=== PATIENT | female | born 1960 | race African-American/Black ===

== ENCOUNTER 2020-12-16 15:51 | Emergency (ER) | payer SELFPAY ==
[~2020-12-16] VITALS: Ht 167.6 cm; Wt 93.0 kg
[2020-12-16 16:30] VITALS: BP 206/83
[2020-12-16] MEDS ORDERED: CYCL10TA2 PO (17:12)
[2020-12-16] MEDS ORDERED: DICL50TA2 PO (17:12)
[2020-12-16] MEDS ORDERED: GABA-585 PO (17:12)
--- NOTE | 2020-12-16 17:13 | PHYS DOC ---
Past Medical History Past Medical History: Diabetes-Type II, High Cholesterol, Hypertension Past Surgical History: No Surgical History Smoking Status: Current Every Day Smoker Alcohol Use: Occasionally Drug Use: None General Adult EDM: Chief Complaint: BACK PAIN - NO INJURY HPI: HPI: Patient is a 60 year old female with a history of diabetes, hypertension, high cholesterol, presenting to the ED today complaining of mild intermittent left lower back pain radiating to the left lower extremity, symptoms began a week ago. Patient denies any injuries, denies any loss of bowel/bladder function, she states she was seen by the PCP last week and was started on prednisone as well as her blood pressure medicine was adjusted. She states the prednisone is not helping with her pain Review of Systems: Review of Systems: Constitutional: Denies fever or chills. [] GI: Denies abdominal pain, nausea, vomiting, bloody stools or diarrhea. [] : Denies dysuria. [] Musculoskeletal: Reports left low back pain radiating to the left lower extremity Integument: Denies rash. [] Neurologic: Denies headache, focal weakness or sensory changes. [] Psychiatric: Denies depression or anxiety. [] Heart Score: C/O Chest Pain: N/A Risk Factors: Risk Factors: DM, Current or recent (<one month) smoker, HTN, HLP, family history of CAD, obesity. Risk Scores: Score 0 - 3: 2.5% MACE over next 6 weeks - Discharge Home Score 4 - 6: 20.3% MACE over next 6 weeks - Admit for Clinical Observation Score 7 - 10: 72.7% MACE over next 6 weeks - Early Invasive Strategies Allergies: Allergies: Allergies Coded Allergies Type Severity Reaction Last Updated Verified No Known Drug Allergies 12/16/20 No Physical Exam: PE: Constitutional: Well developed, well nourished, no acute distress, non-toxic appearance. [] Skin: Warm, dry, no erythema, no rash. [] Back: No tenderness, no CVA tenderness. [] Extremities: No tenderness, no cyanosis, no clubbing, ROM intact, no edema. [] Neurologic: Alert and oriented X 3, normal motor function, normal sensory function, no focal deficits noted. [] Psychologic: Affect normal, judgement normal, mood normal. [] Current Patient Data: Vital Signs: Vital Signs Date Time Temp Pulse Resp B/P (MAP) Pulse Ox O2 Delivery O2 Flow Rate FiO2 12/16/20 16:30 98.8 50 12 206/83 (124) 96 Room Air 98.8 EKG: EKG: [] Radiology/Procedures: Radiology/Procedures: [] Course & Med Decision Making: Course & Med Decision Making Pertinent Labs and Imaging studies reviewed. (See chart for details) This is a 60-year-old female patient presenting to the ED today with pain consistent of sciatica. Was seen by the PCP last week and started on prednisone which she states is not helping. No known injury, no cauda equina syndrome symptoms. Discharge to home with cyclobenzaprine, gabapentin and diclofenac Dragon Disclaimer: Dragon Disclaimer: This electronic medical record was generated, in whole or in part, using a voice recognition dictation system. Departure Departure Impression: Primary Impression: Back pain Qualified Codes: M54.42 - Lumbago with sciatica, left side Additional Impression: Sciatica of left side Disposition: HOME / SELF CARE / HOMELESS Condition: STABLE Referrals: ALESSIA DOUGLAS APRN (PCP) Follow-up with your doctor next week Patient Instructions: Back Pain, Adult, Sciatica, [id number] Additional Instructions: You were evaluated in the emergency room for sciatica. Use the prescribed medications as ordered. Please follow-up with your primary care doctor in the next 1 to 2 weeks. Scripts Diclofenac Potassium (DICLOFENAC POTASSIUM) 50 Mg Tablet 1 TAB PO BID, #12 TAB 1 Refill Prov: MARK JUAREZ APRN 12/16/20 Cyclobenzaprine Hcl (CYCLOBENZAPRINE HCL) 10 Mg Tablet 1 TAB PO TID, #30 TAB Prov: MARK JUAREZ APRN 12/16/20 Gabapentin (GABAPENTIN ) 100 Mg Capsule 100 MG PO TID for NEUROGENIC PAIN, #21 CAP Prov: MARK JUAREZ APRN 12/16/20 MARK JUAREZ APRN December 16, 2020 17:12
== END 2020-12-16 17:40 | disposition home or self-care (01) ==
LOC: ER 15:51
DX: M54.42 Lumbago with sciatica, left side (principal); E11.9 Type 2 diabetes mellitus without complications; E78.00 Pure hypercholesterolemia, unspecified; I10 Essential (primary) hypertension; F17.200 Nicotine dependence, unspecified, uncomplicated
CPT/HCPCS: 99283

== ENCOUNTER 2020-12-19 15:00 | Emergency (ER) | payer SELFPAY ==
[~2020-12-19] VITALS: Ht 167.6 cm; Wt 93.1 kg
[~2020-12-19 15:00] MED LIST: CYCL10TA2 PO; DICL50TA2 PO; GABA-585 PO
[2020-12-19] MEDS ORDERED: diazePAM 5 MG TABLET PO ONE (16:30)
[2020-12-19] MEDS ORDERED: HYDROcodone/APAP 5/325MG 1 TAB TABLET PO ONE (16:30)
--- NOTE | 2020-12-19 17:01 | RAD ---
Exam: CT the lumbar spine without contrast INDICATION: Lower lumbar back pain with numbness to the left lower extremity. TECHNIQUE: Sequential axial images through the lumbar spine obtained without IV contrast. Sagittal an d coronal reformatted images were reconstructed from the axial data and reviewed. Exposure: One or more of the following in the visualized dose reduction techniques were utilized for this examination: 1. Automated exposure control 2. Adjustment of the MA and/or KV according to patient size 3. Use of iterative of reconstructive technique Comparisons: None FINDINGS: Vertebral body heights are well-maintained. Grade 1 anterolisthesis of L4 on L5. Fracture through the lumbar spine is not identified. Mild degenerative disc disease at L5 or L5 and L5-S1 with associated mild broad-based disc bulges cau sing moderate to severe spinal canal stenosis at L4-L5. Moderate bilateral neural foraminal stenosis at L4-L5 and L5-S1. Visualized paraspinal soft tissues are unremarkable. 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 Electronically signed by: Lisa Goddard MD (12/19/2020 4:59 PM) [place]
[2020-12-19] MEDS ORDERED: LIDO1ADH TP (17:55)
[2020-12-19] MEDS ORDERED: HYDR-2761 PO (17:55)
[2020-12-19] MEDS ORDERED: DIAZ5TAB PO (17:55)
--- NOTE | 2020-12-19 17:55 | PHYS DOC ---
Past Medical History Past Medical History: Diabetes-Type II, High Cholesterol, Hypertension, Other Additional Past Medical Histor: SCIATICA Past Surgical History: No Surgical History Smoking Status: Current Every Day Smoker Additional Information: 1 PPD Alcohol Use: Rarely Drug Use: None General Adult EDM: Chief Complaint: LOWEREXTREMITY INJURY HPI: HPI: Patient is a 60 year old diabetes type 2, hypertension, high cholesterol, who presents to the ED today complaining of moderate sharp constant left low back pain radiating to the left lower extremity, symptoms began 3 weeks ago. Patient denies any trauma. Denies any loss of bowel/bladder function. States occasionally she has a funny sensation of numbness that goes to her toes. She states she saw her PCP a week and a half ago who started her on prednisone, she states it did not help. She came to the ED last week and she was given diclofen ac gabapentin and cyclobenzaprine which she states is not helping. She states pain is worse on weightbearing. Review of Systems: Review of Systems: Constitutional: Denies fever or chills. [] GI: Denies abdominal pain, nausea, vomiting, bloody stools or diarrhea. [] : Denies dysuria. [] Musculoskeletal: Reports left low back pain radiating to the left lower extremity Integument: Denies rash. [] Neurologic: Denies headache, focal weakness or sensory changes. [] Psychiatric: Denies depression or anxiety. [] Heart Score: C/O Chest Pain: N/A Risk Factors: Risk Factors: DM, Current or recent (<one month) smoker, HTN, HLP, family history of CAD, obesity. Risk Scores: Score 0 - 3: 2.5% MACE over next 6 weeks - Discharge Home Score 4 - 6: 20.3% MACE over next 6 weeks - Admit for Clinical Observation Score 7 - 10: 72.7% MACE over next 6 weeks - Early Invasive Strategies Current Medications: Current Medications Medications (Trade) Dose Ordered Sig/Tej Start Time Stop Time Status Last Admin Dose Admin Acetaminophen/ Hydrocodone Bitart (Lortab 5/325) 2 tab 1X ONCE 12/19/20 16:30 12/19/20 16:31 DC 12/19/20 16:54 2 TAB Diazepam (Valium) 5 mg 1X ONCE 12/19/20 16:30 12/19/20 16:31 DC 12/19/20 16:55 5 MG Allergies: Allergies: Allergies Coded Allergies Type Severity Reaction Last Updated Verified No Known Drug Allergies 12/16/20 No Physical Exam: PE: Constitutional: Well developed, well nourished, no acute distress, non-toxic appearance. [] Abdomen: Bowel sounds normal, soft, no tenderness, no masses, no pulsatile masses. [] Skin: Warm, dry, no erythema, no rash. [] Back: Tenderness to the left lower lumbar spine worse on the left SI joint, with slight midline tenderness, no CVA tenderness. Positive straight leg raise at 10 degrees Extremities: No tenderness, no cyanosis, no clubbing, ROM intact, no edema. [] Neurologic: Alert and oriented X 3, normal motor function, normal sensory function, no focal deficits noted. [] Psychologic: Affect normal, judgement normal, mood normal. [] Current Patient Data: Vital Signs: Vital Signs Date Time Temp Pulse Resp B/P (MAP) Pulse Ox O2 Delivery O2 Flow Rate FiO2 12/19/20 15:19 98.1 56 16 198/95 (129) 99 Room Air 98.1 EKG: EKG: [] Radiology/Procedures: Radiology/Procedures: []ROCEDURE: CT LUMBAR SPINE WO CONTRAST Exam: CT the lumbar spine without contrast INDICATION: Lower lumbar back pain with numbness to the left lower extremity. TECHNIQUE: Sequential axial images through the lumbar spine obtained without IV contrast. Sagittal and coronal reformatted images were reconstructed from the axial data and reviewed. Exposure: One or more of the following in the visualized dose reduction techniques were utilized for this examination: 1. Automated exposure control 2. Adjustment of the MA and/or KV according to patient size 3. Use of iterative of reconstructive technique Comparisons: None FINDINGS: Vertebral body heights are well-maintained. Grade 1 anterolisthesis of L4 on L5. Fracture through the lumbar spine is not identified. Mild degenerative disc disease at L5 or L5 and L5-S1 with associated mild broad- based disc bulges causing moderate to severe spinal canal stenosis at L4-L5. Moderate bilateral neural foraminal stenosis at L4-L5 and L5-S1. Visualized paraspinal soft tissues are unremarkable. 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 Electronically signed by: Lisa Conklin MD (12/19/2020 4:59 PM) [facility] DICTATED and SIGNED BY: LISA CONKLIN MD DATE: 12/19/20 [id number] 0 Course & Med Decision Making: Course & Med Decision Making Pertinent Labs and Imaging studies reviewed. (See chart for details) This is a 60-year-old female patient presented to the ED today with low back pain for 3 weeks, no known injury, has been seen by the PCP and was in the ED a week ago with no improvement. CT of the lumbar spine noted for DJD with bulging disks. Patient has no cauda equina syndrome symptoms. Patient was given prescription for Valium and hydrocodone. She already has diclofenac. Lidoderm patches also provided. Follow-up with neurosurgery and PCP next week Enrique Disclaimer: Dragon Disclaimer: This electronic medical record was generated, in whole or in part, using a voice recognition dictation system. Departure Departure Impression: Primary Impression: Back pain Qualified Codes: M54.5 - Low back pain Additional Impression: Sciatica of left side Disposition: HOME / SELF CARE / HOMELESS Condition: STABLE Referrals: ALESSIA DOUGLAS APRN (PCP) SEBASTIEN MINER MD follow up next week BERENICE SY MD follow up next week Patient Instructions: Back Pain, Adult, [id number] Additional Instructions: You were evaluated in the emergency room for back pain with sciatica. You were noted to have arthritis and bulging disks to your low back. Please follow-up with the provided neurosurgeon and pain clinic doctor next week, contact the office and set up appointments. Take the prescribed medications as ordered including the other medicines you have Scripts Lidocaine/Menthol (LIDOPATCH) 1 Each Adh..patch 1 ANTONIO TP DAILY, #15 EACH 0 Refills Prov: MARK JUAREZ YASEMIN 12/19/20 Hydrocodone Bit/Acetaminophen (HYDROCODONE-APAP 5-325 ) 1 Tab Tablet 1 TAB PO PRN Q6HRS PRN for PAIN, #30 TAB 0 Refills Prov: MARK JUAREZ Zehra HAZEL 12/19/20 Diazepam (VALIUM) 5 Mg Tablet 5 MG PO TID PRN for MUSCLE SPASMS, #30 TAB Prov: LARRYMARK Zehra CLARKEN 12/19/20 LARRYMARK Zehra HAZEL December 19, 2020 17:55
[2020-12-19 18:28] VITALS: BP 223/109
== END 2020-12-19 18:28 | disposition home or self-care (01) ==
LOC: ER 15:00
DX: M54.42 Lumbago with sciatica, left side (principal); E11.9 Type 2 diabetes mellitus without complications; E78.00 Pure hypercholesterolemia, unspecified; I10 Essential (primary) hypertension; F17.200 Nicotine dependence, unspecified, uncomplicated
CPT/HCPCS: 72131; 99284-25

== ENCOUNTER 2021-05-16 16:11 | Emergency (ER) | payer SELFPAY ==
[~2021-05-16] VITALS: Ht 165.1 cm; Wt 103.0 kg
[~2021-05-16 16:11] MED LIST changes: +DIAZ5TAB PO; +HYDR-2761 PO; +LIDO1ADH TP
[2021-05-16 17:08] LABS: BASO # 0.1 x10^3/uL (0.0-0.2); BASO % 1 % (0-3); EOS # 0.1 x10^3/uL (0.0-0.7); EOS % 2 % (0-3); HEMATOCRIT 34.1 % (36.0-47.0); HEMOGLOBIN 11.4 g/dL (12.0-15.5); LYMPH # 1.5 x10^3/uL (1.0-4.8); LYMPH % 30 % (24-48); MEAN CORPUSCULAR HEMOGLOBIN 30 pg (25-35); MEAN CORPUSCULAR HGB CONC 33 g/dL (31-37); MEAN CORPUSCULAR VOLUME 89 fL (79-100); MONO # 0.6 x10^3/uL (0.0-1.1); MONO % 12 % (0-9); NEUT # 2.9 x10^3/uL (1.8-7.7); NEUT % 55 % (31-73); PLATELET COUNT 197 x10^3/uL (140-400); RED BLOOD COUNT 3.84 x10^6/uL (3.50-5.40); RED CELL DISTRIBUTION WIDTH 15.9 % (11.5-14.5); WHITE BLOOD COUNT 5.2 x10^3/uL (4.0-11.0)
[2021-05-16 17:28] LABS: CALCIUM 9.5 mg/dL (8.5-10.1); GFR 68.4; POTASSIUM 3.3 mmol/L (3.5-5.1)
--- NOTE | 2021-05-16 17:29 | RAD ---
XR CHEST 1V History: Reason: Chest pain / Spl. Instructions: / History: Comparison: July 11, 2015 Findings: No consolidation or pleural effusion. Normal heart size. No pneumothorax. Impression: 1. No acute cardiopulmonary process. Electronically signed by: Prieto Chino DO (05/16/2021 5:27 PM) [facility]
--- NOTE | 2021-05-16 17:35 | EKG ---
[facility] [address] [place] [address] Test Date: 2021-05-16 Test Time: 16:21:32 Pat Name: JACOB MCNEAL Department: Room: Gender: F Lpn: : 1960 Requested By: DANIEL ORDOÑEZ Order Number: [id number] Reading MD: Cecilio Oseguera Measurements Intervals [place] Rate: 74 P: 65 [place]: 158 QRS: -39 QRSD: 94 T: 61 QT: 394 QTc: 438 Interpretive Statements SINUS RHYTHM ABNORMAL LEFT AXIS DEVIATION LEFT ANTERIOR FASCICULAR BLOCK CONSIDER LEFT VENTRICULAR HYPERTROPHY T ABNORMALITY IN HIGH LATERAL LEADS ABNORMAL ECG Electronically Signed On 05-22-2021 13:03:14 CDT by Cecilio Oseguera
[2021-05-16 17:36] LABS: ALBUMIN 3.4 g/dL (3.4-5.0); ALBUMIN/GLOBULIN RATIO 0.7 (1.0-1.7); TOTAL BILIRUBIN 0.2 mg/dL (0.2-1.0)
[2021-05-16 18:46] LABS: PLT ESTIMATE ADEQUATE (ADEQUATE)
[2021-05-16 19:00] VITALS: BP 188/110
[2021-05-16] MEDS ORDERED: KETOROLAC 30 MG/ML VIAL. IVP ONE (19:00)
--- NOTE | 2021-05-16 19:14 | PHYS DOC ---
Past Medical History Past Medical History: Diabetes-Type II, High Cholesterol, Hypertension, Other Additional Past Medical Histor: SCIATICA Past Surgical History: No Surgical History Smoking Status: Former Smoker Alcohol Use: None Drug Use: None General Adult EDM: Chief Complaint: CHEST PAIN HPI: HPI: Patient is a 60-year-old female presents emergency department complaining of sternal chest pain that increases with deep breathing and deep expiration for the past 2 weeks. Patient reports she has been seeing her doctors at [facility] and they are not doing nothing for her. Patient reports intubated does have a history of hypertension and her blood pressure is high however is recently starting medications and she is aware of her diastolic blood pressures being over 100. Patient reports her doctors are trying different medications to help with this. Patient denies shortness of breath, recent fever or chills, nausea, vomiting, diarrhea, denies diaphoresis, patient denies other complaints or concerns. Review of Systems: Review of Systems: 14 body systems of review of systems have been reviewed. See HPI for pertinent positives and negative responses, otherwise all other systems are negative, nonpertinent or noncontributory. Constitutional: Negative except as outlined in HPI above. Skin: Negative except as outlined in HPI above. Eyes: Negative except as outlined in HPI above. HENT: Negative except as outlined in HPI above. Respiratory: Negative except as outlined in HPI above. Cardiovascular: Negative except as outlined in HPI above. GI: Negative except as outlined in HPI above. : Negative except as outlined in HPI above. Musculoskeletal: Negative except as outlined in HPI above. Integument: Negative except as outlined in HPI above. Neurologic: Negative except as outlined in HPI above. Endocrine: Negative except as outlined in HPI above. Lymphatic: Negative except as outlined in HPI above. Psychiatric: Negative except as outlined in HPI above. Heart Score: C/O Chest Pain: Yes HEART Score for Chest Pain: HEART Score for Chest Pain Response (Comments) Value History Slighlty/Non-Suspicious 0 ECG Normal 0 Age >45 - < 65 1 Risk Factors 1 or 2 Risk Factors 1 Troponin < Normal Limit 0 Total 2 Risk Factors: Risk Factors: DM, Current or recent (<one month) smoker, HTN, HLP, family history of CAD, obesity. Risk Scores: Score 0 - 3: 2.5% MACE over next 6 weeks - Discharge Home Score 4 - 6: 20.3% MACE over next 6 weeks - Admit for Clinical Observation Score 7 - 10: 72.7% MACE over next 6 weeks - Early Invasive Strategies Allergies: Allergies: Allergies Coded Allergies Type Severity Reaction Last Updated Verified No Known Drug Allergies 05/16/21 No Physical Exam: PE: Constitutional: Well developed, well nourished, no acute distress, non-toxic appearance. 60-year-old female in no apparent distress. HENT: Normocephalic, atraumatic. Eyes: Conjunctiva normal, no discharge. Neck: Normal range of motion, no stridor. Cardiovascular: No cyanosis appreciated, distal cap refill less than 2 seconds. Regular rate and rhythm, heart sounds S1-S2 auscultation. Lungs & Thorax: Patient is in no respiratory distress, no audible adventitious lung sounds appreciated. Pain to palpation anterior thorax along mid sternal area. No bruising, no crepitus appreciated, no subcu air. Equal rise and fall of chest Abdomen: Nontender, no abnormalities noted. Skin: Warm, dry, no erythema, no rash. Back: No tenderness, no deformities. Extremities: No tenderness, no cyanosis, no clubbing, ROM intact, no edema. Neurologic: Alert and oriented X 3, normal motor function, normal sensory function, no focal deficits noted. Psychologic: Affect normal, judgement normal, mood normal. Current Patient Data: Labs: Laboratory Tests Test 05/16/21 16:34 White Blood Count 5.2 x10^3/uL (4.0-11.0) Red Blood Count 3.84 x10^6/uL (3.50-5.40) Hemoglobin 11.4 g/dL (12.0-15.5) L Hematocrit 34.1 % (36.0-47.0) L Mean Corpuscular Volume 89 fL (79-100) Mean Corpuscular Hemoglobin 30 pg (25-35) Mean Corpuscular Hemoglobin Concent 33 g/dL (31-37) Red Cell Distribution Width 15.9 % (11.5-14.5) H Platelet Count 197 x10^3/uL (140-400) Neutrophils (%) (Auto) 55 % (31-73) Lymphocytes (%) (Auto) 30 % (24-48) Monocytes (%) (Auto) 12 % (0-9) H Eosinophils (%) (Auto) 2 % (0-3) Basophils (%) (Auto) 1 % (0-3) Neutrophils # (Auto) 2.9 x10^3/uL (1.8-7.7) Lymphocytes # (Auto) 1.5 x10^3/uL (1.0-4.8) Monocytes # (Auto) 0.6 x10^3/uL (0.0-1.1) Eosinophils # (Auto) 0.1 x10^3/uL (0.0-0.7) Basophils # (Auto) 0.1 x10^3/uL (0.0-0.2) Platelet Estimate Adequate (ADEQUATE) Large Platelets Present Sodium Level 140 mmol/L (136-145) Potassium Level 3.3 mmol/L (3.5-5.1) L Chloride Level 103 mmol/L (98-107) Carbon Dioxide Level 28 mmol/L (21-32) Anion Gap 9 (6-14) Blood Urea Nitrogen 9 mg/dL (7-20) Creatinine 1.0 mg/dL (0.6-1.0) Estimated GFR (Cockcroft-Gault) 68.4 BUN/Creatinine Ratio 9 (6-20) Glucose Level 113 mg/dL (70-99) H Calcium Level 9.5 mg/dL (8.5-10.1) Total Bilirubin 0.2 mg/dL (0.2-1.0) Aspartate Amino Transferase (AST) 23 U/L (15-37) Alanine Aminotransferase (ALT) 31 U/L (14-59) Alkaline Phosphatase 76 U/L (46-116) Creatine Kinase 210 U/L (26-192) H Creatine Kinase MB (Mass) 1.6 ng/mL (0.0-3.6) Creatine Kinase MB Relative Index 0.8 % (0-4) Troponin I Quantitative < 0.017 ng/mL (0.000-0.055) ME-Xge-U-Type Natriuretic Peptide 58 pg/mL (0-124) Total Protein 8.0 g/dL (6.4-8.2) Albumin 3.4 g/dL (3.4-5.0) Albumin/Globulin Ratio 0.7 (1.0-1.7) L Laboratory Tests 05/16/21 16:34 Laboratory Tests 05/16/21 16:34 Vital Signs: Vital Signs Date Time Temp Pulse Resp B/P (MAP) Pulse Ox O2 Delivery O2 Flow Rate FiO2 05/16/21 18:14 80 15 183/109 (133) 97 Room Air 05/16/21 16:26 98.2 98.2 EKG: EKG: EKG performed at 1624 by ED nursing staff shows a normal sinus rhythm without other ectopy, heart rate 74 bpm, PA interval 0.158, QTc interval 0.461, no acute STEMI, no ACS, no acute ischemia appreciated, EKG interpreted by ED attending physician Dr. Chawla. Radiology/Procedures: Radiology/Procedures: PATIENT: JACOB MCNEAL ACCOUNT: [id number] : 1960 LOCATION: ER AGE: 60 SEX: F EXAM STATUS: PRE ER ORD. PHYSICIAN: DANIEL ORDOÑEZ APRN REASON: Chest pain PROCEDURE: CHEST AP ONLY XR CHEST 1V History: Reason: Chest pain / Spl. Instructions: / History: Comparison: July 11, 2015 Findings: No consolidation or pleural effusion. Normal heart size. No pneumothorax. Impression: 1. No acute cardiopulmonary process. Electronically signed by: Prieto Chino DO (05/16/2021 5:27 PM) [facility] Course & Med Decision Making: Course & Med Decision Making Pertinent Labs and Imaging studies reviewed. (See chart for details) 60 year-old female, vital signs reviewed, presents emergency department concerning sternal chest pain. Physical examination consistent with musculoske letal chest wall pain, related to patient's age and history will order cardiopulmonary work-up. Patient's EKG, cardiac enzymes, chest x-ray nonconcerning for acute cardiopulmonary process, all other labs within normal limits or equivocal. Discussed findings with patient, patient is relieved to know if she does not have pneumonia or having a heart attack. Discussed strict follow-up with primary care regarding hypertension. Patient did have several episodes of hypertensive blood pressures, patient has good follow-up and reports taking her blood pressure medicines at home. Will discharge patient to home with strict follow-up with primary care. This is unlikely pulmonary emboli, patient cu rrently rates her pain at a 1 out of 10, the patient is not hypoxic, the patient is in no respiratory distress. Discussed with the patient all findings and diagnostic testing as well as the need to follow-up with their primary care provider for further evaluation and treatment or return to the ED if any new or worsening symptoms. Strict return precautions were also discussed at length, the patient voiced understanding and agreement with the discharge planning. The patient was nontoxic in appearance, in no apparent distress, and hemodynamically stable at the time of disposition. Dragon Disclaimer: Dragon Disclaimer: This electronic medical record was generated, in whole or in part, using a voice recognition dictation system. Departure Departure Impression: Primary Impression: Chest wall pain Disposition: HOME / SELF CARE / HOMELESS Condition: GOOD Referrals: ALESSIA DOUGLAS APRN (PCP) Patient Instructions: Chest Pain (Nonspecific) Additional Instructions: You were seen today in the emergency department for chest pain. An extensive cardiopulmonary work-up was done today. Your EKG and chest x-ray did not show any concerning findings. Your lab work did not show any signs of infectious process, your heart enzymes were all within normal limits. We talked at length about your elevated blood pressures in the emergency department. You had disclosed you are working closely with your primary care physician to manage her blood pressures. Please keep all your future appointments with your primary care physician to manage blood pressure. You may use [id number] Tylenol and or Motrin for ongoing chest wall pain. Thank you for visiting our Emergency Department. It was a pleasure taking care of you today in the emergency department and we appreciate you trusting us with your care. If any additional problems come up don't hesitate to return to visit us. Please follow up with your primary care provider so they can plan additional care if needed and know about the problem that you had. If symptoms worsen come back to the Emergency Department. Any concerning symptoms that start such as chest pain, shortness of air, weakness or numbness on one side of the body, running high fevers or any other concerning symptoms return to the ER. EMERGENCY DEPARTMENT GENERAL DISCHARGE INSTRUCTIONS Thank you for coming to Emergency Department (ED) today and trusting us with you care. We trust that you had a positive experience in our Emergency Department. If you wish to speak to the department management, you may call the Director at [phone]. YOUR FOLLOW UP INSTRUCTIONS ARE FOLLOWS: 1. Do you have a private Doctor? If you do not have a private doctor, please ask for a resource list of physicians or clinics that may be able to assist you with follow up care. 2. The Emergency Physicain has interpreted your x-rays. The X-Ray specialist will also review them. If there is a change in the findings, you will be notified in 48 hours when at all possible. 3. A lab test or culture has been done, your results will be reviewed and you will be notified if you need a change in treatment. ADDITIONAL INSTRUCTIONS AND INFORMATION: 1. Your care today has been supervised by a physician who is specially trained in emergency care. Many problems require more than one evaluation for a complete diagnosis and treatment. We recommend that you schedule your follow up appointment as recommended to ensure complete treatment of you illness or injury. If you are unable to obtain follow up care and continue to have a problem, or if your condition worsens, we recommend that you return to the ED. 2. We are not able to safely determine your condition over the phone nor are we able to give sound medical advice over the phone. For these safety reasons, if you call for medical advice we will ask you to come to the ED for further evaluation. 3. If you have any questions regarding these discharge instructions please call the ED at [phone]. SAFETY INFORMATION: In the interest of safety, wellness, and injury prevention; we encourage you to wear your sealbelt, if you smoke; quite smoking, and we encourage family to use a protective helmet for bicycling and other sporting events that present an increased risk for head injury. IF YOUR SYMPTOMS WORSEN OR NEW SYMPTOMS DEVELOP, OR YOU HAVE CONCERNS ABOUT YOUR CONDITION; OR IF YOUR CONDITION WORSENS WHILE YOU ARE WAITING FOR YOUR FOLLOW UP APPOINTMENT; EITHER CONTACT YOUR PRIMARY CARE DOCTOR, THE PHYSICIAN WHOSE NAME AND NUMBER YOU WERE GIVEN, OR RETURN TO THE ED IMMEDIATELY. DANIEL ORDOÑEZ APRN May 16, 2021 19:14
== END 2021-05-16 19:25 | disposition home or self-care (01) ==
LOC: ER 16:11
DX: R07.2 Precordial pain (principal); E11.9 Type 2 diabetes mellitus without complications; E78.00 Pure hypercholesterolemia, unspecified; I10 Essential (primary) hypertension; Z87.891 Personal history of nicotine dependence
CPT/HCPCS: 36415; 71045; 80053; 82553; 83880; 84484; 85025; 93005; 99285-25